=== PATIENT | male | born 1965 | race Caucasian/White ===

== ENCOUNTER 2020-06-04 11:38 | Emergency (ER) | payer BC ==
--- NOTE | 2020-06-04 12:27 | EDM.PDOC ---
ED HPI GENERAL MEDICAL PROBLEM - General Chief Complaint: Respiratory Problem Stated Complaint: SOB Time Seen by Provider: 06/04/20 12:17 Source of Information: Reports: Patient, Family, RN Notes Reviewed History Limitations: Reports: No Limitations - History of Present Illness INITIAL COMMENTS - FREE TEXT/NARRATIVE: 55-year-old gentleman presents emergency department today complaint shortness of breath, he was recently diagnosed with COVID on the of this month admitted to the hospital on the for increasing shortness of breath and hypoxia. Discharged from the hospital on the of this month traveled from [place] to be at [place] in the area. He states this morning had sudden onset of shortness of breath at rest any exertion made his shortness of breath worse he does have a pulse oximeter at home found to be in the 80s right now he feels slightly short of breath at rest is maintaining his saturation but any exertion he will become hypoxic - Related Data Allergies Allergy/AdvReac Type Severity Reaction Status Date / Time No Known Allergies Allergy Verified 06/04/20 11:50 Home Meds: Home Meds Apremilast [Otezla] 30 mg PO BID 06/04/20 [History] Aspirin 1 tab PO DAILY 06/04/20 [History] Losartan [Cozaar] 50 mg PO DAILY 06/04/20 [History] Rivaroxaban [Xarelto] 15 mg PO BID #42 tab 06/04/20 [Rx] Rivaroxaban [Xarelto] 20 mg PO DAILY #60 tablet 06/04/20 [Rx] Tamsulosin [Flomax] 1 tab PO DAILY 06/04/20 [History] Zinc 1 tab PO DAILY 06/04/20 [History] dexAMETHasone [Dexamethasone] 6 mg PO DAILY 06/04/20 [History] lisinopriL [Lisinopril] 30 mg PO DAILY 06/04/20 [History] metFORMIN [Glucophage] 500 mg PO TID 06/04/20 [History] Past Medical History Cardiovascular History: Reports: Hypertension Respiratory History: Reports: Other (See Below) Other Respiratory History: status post covid 19 hospital D/C 05/31/20, diagnosis on 04/30/20 Endocrine/Metabolic History: Reports: Diabetes, Type II Dermatologic History: Reports: Eczema Social & Family History - Tobacco Use Smoking Status *Q: Never Smoker ED ROS GENERAL - Review of Systems Review Of Systems: See Below Constitutional: Denies: Fever, Chills HEENT: Reports: No Symptoms Respiratory: Reports: Shortness of Breath. Denies: Cough, Sputum Cardiovascular: Reports: Dyspnea on Exertion GI/Abdominal: Reports: No Symptoms ED EXAM, GENERAL - Physical Exam Exam: See Below Exam Limited By: No Limitations General Appearance: Alert, WD/WN, No Apparent Distress Respiratory/Chest: No Respiratory Distress, Lungs Clear, Normal Breath Sounds, No Accessory Muscle Use, Chest Non-Tender Cardiovascular: Regular Rate, Rhythm, No Murmur GI/Abdominal: Soft, Non-Tender Extremities: No Pedal Edema Course - Vital Signs Last Recorded V/S: Last Vital Signs Temp 97.5 F 06/04/20 12:14 Pulse 87 06/04/20 13:48 Resp 27 H 06/04/20 13:48 BP 124/73 06/04/20 13:48 Pulse Ox 94 L 06/04/20 13:48 - Orders/Labs/Meds Orders: Active Orders 24 hr Category Date Time Status EKG Documentation Completion [RC] ASDIRECTED Care 06/04/20 12:24 Active Peripheral IV Care [RC] . DIRECTED Care 06/04/20 13:21 Active Chest 2V [CR] Urgent Exams 06/04/20 12:23 Taken Sodium Chloride 0.9% [Normal Saline] 1,000 ml Med 06/04/20 13:30 Active IV ASDIRECTED Sodium Chloride 0.9% [Saline Flush] Med 06/04/20 13:21 Active 10 ml FLUSH ASDIRECTED PRN Peripheral IV Insertion Adult [OM.PC] Urgent Oth 06/04/20 13:21 Ordered EKG 12 Lead [EK] Stat Ther 06/04/20 12:24 Ordered Medication Orders Sodium Chloride (Normal Saline) 1,000 mls @ 500 mls/hr IV ASDIRECTED FRANCHESCA Last Admin: 06/04/20 14:26 Dose: 500 mls/hr Documented by: SALVATORE Sodium Chloride (Saline Flush) 10 ml FLUSH ASDIRECTED PRN PRN Reason: Keep Vein Open Last Admin: 06/04/20 14:26 Dose: 10 ml Documented by: SALVATORE Labs: Laboratory Tests 06/04/20 06/04/20 06/04/20 Range/Units 12:33 12:33 12:33 WBC 12.4 H (4.5-11.0) K/uL RBC 4.86 (4.30-5.90) M/uL Hgb 13.7 (12.0-15.0) g/dL Hct 42.4 (40.0-54.0) % MCV 87 (80-98) fL MCH 28 (27-31) pg MCHC 32 (32-36) % Plt Count 557 H (150-400) K/uL Neut % (Auto) 90 H (36-66) % Lymph % (Auto) 4 L (24-44) % [place] % (Auto) 5 (2-6) % Eos % (Auto) 0 L (2-4) % Baso % (Auto) 0 (0-1) % D-Dimer, Quantitative 785 H (0.0-400.0) ng/mL Sodium 134 L (140-148) mmol/L Potassium 4.0 (3.6-5.2) mmol/L Chloride 99 L (100-108) mmol/L Carbon Dioxide 24 (21-32) mmol/L Anion Gap 15.0 H (5.0-14.0) mmol/L BUN 15 (7-18) mg/dL Creatinine 1.1 (0.8-1.3) mg/dL Est Cr Clr Drug Dosing 86.76 mL/min Estimated GFR (MDRD) > 60 (>60) Glucose 224 H (74-106) mg/dL Calcium 8.5 (8.5-10.1) mg/dL Total Bilirubin 0.4 (0.2-1.0) mg/dL AST 43 H (15-37) U/L ALT 105 H (12-78) U/L Alkaline Phosphatase 79 (46-116) U/L Troponin I < 0.017 (0.000-0.056) ng/mL Total Protein 7.3 (6.4-8.2) g/dL Albumin 2.8 L (3.4-5.0) g/dL Globulin 4.5 H (2.3-3.5) g/dL Albumin/Globulin Ratio 0.6 L (1.2-2.2) Meds: Medications Generic Name Dose Route Start Last Admin Trade Name Freq PRN Reason Stop Dose Admin Sodium Chloride 1,000 mls @ 500 mls/hr 06/04/20 13:30 06/04/20 14:26 Normal Saline IV 500 mls/hr ASDIRECTED FRANCHESCA Administration Sodium Chloride 10 ml 06/04/20 13:21 06/04/20 14:26 Saline Flush FLUSH 10 ml ASDIRECTED PRN Administration Keep Vein Open Discontinued Medications Generic Name Dose Route Start Last Admin Trade Name Deyanira PRN Reason Stop Dose Admin Sodium Chloride 100 mls @ 3.5 mls/sec 06/04/20 14:00 06/04/20 14:04 Normal Saline IV 06/04/20 14:01 4 mls/sec ASDIRECTED FRANCHESCA Administration Iopamidol 100 ml 06/04/20 14:00 06/04/20 14:04 Isovue-370 (76%) IV 06/04/20 14:01 100 ml . DIRECTED FRANCHESCA Administration Rivaroxaban 15 mg 06/04/20 15:46 Xarelto PO 06/04/20 15:47 NOW STA Sodium Chloride 10 ml 06/04/20 13:48 06/04/20 14:04 Saline Flush FLUSH 06/04/20 13:49 10 ml ONETIME ONE Administration Departure - Departure Time of Disposition: 15:53 Disposition: Home, Self-Care 01 Condition: Fair Clinical Impression: Pneumonia due to COVID-19 virus - Discharge Information Prescriptions: Rivaroxaban [Xarelto] 15 mg PO BID #42 tab Rivaroxaban [Xarelto] 20 mg PO DAILY #60 tablet Instructions: COVID-19: How to Protect Yourself and Others - CDC, COVID-19 Frequently Asked Questions Referrals: PCP,None [Primary Care Provider] - Forms: ED Department Discharge Additional Instructions: Start the Xarelto 15 mg twice a day for 21 days and then 20 mg once a day thereafter, plan to reevaluate with your primary care about 3 months and whether you need to continue this medication. Your medications have been faxed to [facility] in [place], call return to the emergency department worsening symptoms, continue to do self isolation quarantine and social distancing Sepsis Event Note (ED) - Evaluation Sepsis Screening Result: No Definite Risk - Focused Exam Vital Signs: Vital Signs Temp Pulse Resp BP Pulse Ox 06/04/20 13:48 87 27 H 124/73 94 L 06/04/20 13:18 81 32 H 121/68 94 L 06/04/20 12:48 88 22 H 123/77 92 L 06/04/20 12:14 97.5 F 111 H 14 164/77 H - My Orders Last 24 Hours: My Active Orders 06/04/20 12:23 Chest 2V [CR] Urgent 06/04/20 12:24 EKG Documentation Completion [RC] ASDIRECTED EKG 12 Lead [EK] Stat 06/04/20 13:21 Peripheral IV Care [RC] . DIRECTED Sodium Chloride 0.9% [Saline Flush] 10 ml FLUSH ASDIRECTED PRN Peripheral IV Insertion Adult [OM.PC] Urgent 06/04/20 13:30 Sodium Chloride 0.9% [Normal Saline] 1,000 ml IV ASDIRECTED - Assessment/Plan Last 24 Hours: My Active Orders 06/04/20 12:23 Chest 2V [CR] Urgent 06/04/20 12:24 EKG Documentation Completion [RC] ASDIRECTED EKG 12 Lead [EK] Stat 06/04/20 13:21 Peripheral IV Care [RC] . DIRECTED Sodium Chloride 0.9% [Saline Flush] 10 ml FLUSH ASDIRECTED PRN Peripheral IV Insertion Adult [OM.PC] Urgent 06/04/20 13:30 Sodium Chloride 0.9% [Normal Saline] 1,000 ml IV ASDIRECTED Plan: Assessment Acuity = acute Site and laterality = COVID 19 pneumonia Etiology = viral Manifestations = dyspnea with hypoxia Location of injury = Home Lab values = WBC elevated 12.4 consistent with leukocytosis platelets elevated 557 consistent with thrombocytosis d-dimer elevated 785 uncertain significance glucose elevated to 24 consistent hyperglycemia AST elevated 43 ALT elevated 105 consistent elevated liver enzymes troponin was negative chest x-ray shows no acute process official read radiologist pending, CT scan shows groundglass opacities consistent with COVID pneumonia which she was positive for at the beginning of the month however this was an angiogram to rule out pulmonary embolism the large arteries were easily observed but the small ones were not due to insufficient filling Plan I did review lab work with him and CT scan results elected to treat conservatively because the event he had this morning which he was suddenly short of breath and hypoxic of the possibility of a pulmonary embolism even though it is not proven on CT scan which was an adequate. Therefore elected to do Xarelto 15 mg p.o. twice daily x21 days followed by 20 mg once a day he was given a dose in the emergency department then medications faxed to [facility] he is going to isolate and keep in touch with his primary care back home. This note was dictated using [employer] voice recognition software please call with any questions on syntax or grammar.
[2020-06-04] MEDS ORDERED: Sodium Chloride 0.9% 10 ML Syringe FLUSH PRN (13:21)
[2020-06-04] MEDS ORDERED: Sodium Chloride 0.9% 1,000 ML IV SCH (13:30)
[2020-06-04] MEDS ORDERED: Sodium Chloride 0.9% 10 ML Syringe FLUSH ONE (13:48)
[2020-06-04] MEDS ORDERED: Iopamidol 755 Mg/ML 100 ML Bottle IV SCH (14:00)
[2020-06-04] MEDS ORDERED: Sodium Chloride 0.9% 100 ML IV SCH (14:00)
--- NOTE | 2020-06-04 14:50 | CRLCT ---
INDICATION: SOB. Elevated D-dimer. Rule out pulmonary embolism. TECHNIQUE: Volumetric helical scanning of the thorax was performed during infusion of 100 cc of Isovue 370 contrast material IV, timing optimized for pulmonary arterial opacification. Coronal and sagittal reconstructions were obtained. COMPARISON: Today`s chest x-ray. FINDINGS: The pulmonary arteries are less than optimally opacified. No central pulmonary arterial filling defect is identified. However, small peripheral emboli could go undetected. The heart size is normal. Scattered ground-glass infiltrates are demonstrated throughout both lungs. No airway abnormality or pleural effusion is evident. No mediastinal or hilar lymphadenopathy is demonstrated. The right diaphragm is mildly elevated. Images of the upper abdomen are unremarkable. IMPRESSION: 1. Suboptimal pulmonary arterial opacification. No central pulmonary embolus is identified. However, small peripheral emboli could go undetected. 2. Scattered ground-glass infiltrates in both lungs. Commonly reported imaging features of COVID-19 pneumonia are present. Other processes such is influenza pneumonia and organizing pneumonia, as can be seen as well as drug toxicity and connective tissue disease can cause similar imaging pattern. 3. Mild right diaphragmatic elevation. Please note that all CT scans at this facility use dose modulation, iterative reconstruction, and/or weight-based dosing when appropriate to reduce radiation dose to as low as reasonably achievable. Dictated by Torito Garduno MD @ Jun 04 2020 2:42PM Signed by Dr. Torito Garduno @ Jun 04 2020 2:49PM
[2020-06-04] MEDS ORDERED: Rivaroxaban 15 MG Tab PO STA (15:46)
--- NOTE | 2020-06-06 09:44 | CR ---
CHEST: 2 view CLINICAL HISTORY:Recent history of Covid19, recurrent SOB COMPARISON:CT same date FINDINGS: Patient has diffuse bilateral pulmonary infiltrates which are are well demonstrated on current CT. Heart size and pulmonary vascularity are normal. There are no effusions Impression: Diffuse bilateral pulmonary infiltrates
== END 2020-06-04 16:02 | disposition home or self-care (01) ==
LOC: JP.ED 11:38
DX: U07.1 COVID-19 (principal); J12.89 Other viral pneumonia; I10 Essential (primary) hypertension; E11.9 Type 2 diabetes mellitus without complications; Z79.84 Long term (current) use of oral hypoglycemic drugs; Z79.82 Long term (current) use of aspirin; Z79.899 Other long term (current) drug therapy
CPT/HCPCS: 36415; 71046; 71275; 80053; 84484; 85025; 85379; 93005; 93010; 96360; 96361; 99285; A9270; J7030; J7050; Q9967; 99284